=== PATIENT | male | born 2000 ===

== ENCOUNTER 2025-08-07 17:36 | Emergency (ER) | payer OTHER ==
[~2025-08-07] VITALS: Ht 177.8 cm; Wt 74.8 kg
[2025-08-07 17:43] VITALS: BP 120/67
[2025-08-07] MEDS ORDERED: NEOMY/BACITRA/POLYMYXIN B OINT UD PACKET TP ONE (19:19)
[2025-08-07] MEDS ORDERED: ACETAMINOPHEN 500 MG TABLET ONE (19:19)
[2025-08-07] MEDS ORDERED: TDAP DIPH,PERTUSS,TET VAC/PF 0.5 ML DISP.SYRIN IM ONE (19:20)
[2025-08-07] MEDS: ACETAMINOPHEN 500 MG TABLET PO ONE (19:28)
[2025-08-07] MEDS: NEOMY/BACITRA/POLYMYXIN B OINT UD PACKET TP ONE (19:29)
[2025-08-07 19:32] VITALS: BP 122/66; TEMP 98; O2SAT 99
[2025-08-07] MEDS: TDAP DIPH,PERTUSS,TET VAC/PF 0.5 ML DISP.SYRIN IM ONE (19:32)
== END 2025-08-07 19:33 | disposition home or self-care (01) ==
LOC: ER 17:43
DX: S06.0X0A Concussion without loss of consciousness, initial encounter (principal); S00.01XA Abrasion of scalp, initial encounter; J45.909 Unspecified asthma, uncomplicated; W18.39XA Other fall on same level, initial encounter; Y93.89 Activity, other specified; Y92.89 Other specified places as the place of occurrence of the external cause; Y99.9 Unspecified external cause status
CPT/HCPCS: 90715; A4606; A4663; A9150